=== PATIENT | female | born 1975 | race American Indian/Alaskan Native ===

== ENCOUNTER 2020-08-17 10:33 | Outpatient (CLI) | payer MEDICARE ==
--- NOTE | 2020-08-17 13:39 | Ultrasound Report ---
ULTRASOUND ABDOMEN, COMPLETE INDICATION: BLOATING R14.0. COMPARISON: No relevant prior imaging study available. FINDINGS: Pancreas: Not well identified from overlying bowel gas. Abdominal Aorta: No significant abnormality. IVC: No significant abnormality. Liver: No significant abnormality. Normal hepatopedal blood flow in the main portal vein. Gallbladder: The gallbladder appears partially contracted. No obvious gallstones appreciated.. Bile ducts: No significant abnormality. Common bile duct measures 3 mm. Kidneys: Right: No significant abnormality. Left: No significant abnormality. Spleen: No significant abnormality. Free fluid: None. Additional Findings: None. IMPRESSION: Nonspecific contracted appearance of the gallbladder. No obvious gallstones identified. Signer Name: Regis Ambriz MD Signed: 08/17/2020 1:34 PM Workstation Name: [id number]
== END 2020-08-17 10:34 | disposition home or self-care (01) ==
LOC: SPVWC 10:33
PROVIDERS: ATTEND Internal Medicine Gastroenterology
DX: R14.0 Abdominal distension (gaseous) (principal)
CPT/HCPCS: 76700